=== PATIENT | male | born 1990 | race Caucasian/White ===

== ENCOUNTER 2020-06-04 15:34 | Outpatient (CLI) | payer OTHER, SELFPAY ==
--- NOTE | ~2020-06-04 | XR_ITS ---
EXAMINATION: XR chest 2V DATE: 06/04/2020 15:54 INDICATION: Dyspnea. TECHNIQUE: Frontal and lateral views of the chest were obtained. COMPARISON: Chest 2 views 06/14/2016 FINDINGS: Calcified left lung nodules are consistent with old granulomatous disease. No pleural effus ion or pneumothorax. The heart size is normal. IMPRESSION: 1. No acute cardiopulmonary disease. Reviewed, dictated and finalized at location B. OR ENGINEERING TEAM LEADER
== END 2020-06-04 15:35 | disposition home or self-care (01) ==
PROVIDERS: PCP Family Medicine; Visit Provider Nurse Practitioner Family
DX: R06.00 Dyspnea, unspecified (principal)
CPT/HCPCS: 71046

== ENCOUNTER 2020-06-09 09:34 | Outpatient (CLI) | payer OTHER, SELFPAY ==
--- NOTE | 2020-06-09 09:41 | ECG_ITS ---
Measurements Intervals [place] Rate: 95 P: 17 NV: 165 QRS: -24 QRSD: 100 T: 53 QT: 340 QTc: 428 Interpretive Statements SINUS RHYTHM EARLY PRECORDIAL R/S TRANSITION VOLTAGE CRITERIA FOR LVH BORDERLINE ECG Electronically Signed On 06-09-2020 10:17:09 ELECTRIC METER TESTER SHOP by Ortiz Villareal D.O.
== END 2020-06-09 09:35 | disposition home or self-care (01) ==
LOC: ANHCARD 09:35
PROVIDERS: PCP Family Medicine; Visit Provider Nurse Practitioner Family
DX: R06.00 Dyspnea, unspecified (principal)
CPT/HCPCS: 93005

== ENCOUNTER 2020-06-12 13:44 | Outpatient (CLI) | payer OTHER, SELFPAY ==
--- NOTE | ~2020-06-12 | CT_ITS ---
EXAMINATION: CTA chest PE protocol DATE: 06/12/2020 15:06 INDICATION: Dyspnea TECHNIQUE: Computed tomography (CT) pulmonary angiogram of the chest was performed with 100 mL Omnipa que-350 intravenous contrast. Additional 3D reconstructions utilizing coronal maximum intensity proje ction (MIP) were performed. Automated exposure control and iterative reconstruction technique were em ployed. The dose-length product was 1060.50 mGy-cm. COMPARISON: None FINDINGS: Good contrast opacification of the pulmonary arteries. There is moderate streak artifact from dense c ontrast in the superior vena cava and right atrium accentuated by body habitus. Mild scattered respir atory motion artifact. Overall this mildly decreases sensitivity in the smaller subsegmental pulmonar y arteries. No pulmonary embolism. Calcified nodules in the left upper lobe and lingula consistent wi th old granulomatous disease. Small lung volumes. No pneumonia, pulmonary edema, pleural effusion or pneumothorax. Heart size is normal. No pericardial effusion. Thoracic aorta is normal in caliber with no dissection. Diffuse hepatic steatosis. Mild thoracic spondylosis. IMPRESSION: 1. No pulmonary embolism or other acute cardiopulmonary disease. 2. Diffuse hepatic steatosis. Reviewed, dictated and finalized at location B. ICRAFT OR HOBBY SHOP MANAGER
== END 2020-06-12 13:45 | disposition home or self-care (01) ==
PROVIDERS: PCP Family Medicine; Visit Provider Nurse Practitioner Family
DX: R06.00 Dyspnea, unspecified (principal); R00.0 Tachycardia, unspecified; K76.0 Fatty (change of) liver, not elsewhere classified
CPT/HCPCS: 71275; Q9967

== ENCOUNTER 2021-04-16 14:59 | Outpatient (CLI) | payer OTHER, SELFPAY ==
--- NOTE | ~2021-04-16 | XR_ITS ---
EXAMINATION: XR hand RT min 3V DATE: 04/16/2021 15:23 INDICATION: Right hand pain at the fifth metacarpal. Fall. TECHNIQUE: 3 views of right hand were obtained. COMPARISON: None. FINDINGS: Bone alignment is normal. No fracture. There is mild osteoarthritis of first and second met acarpophalangeal joints characterized by tiny osteophytes. IMPRESSION: 1. No fracture. Reviewed, dictated and finalized at location A. OLL SECRETARY IMPRESSION: 1. No fracture.
== END 2021-04-16 15:00 | disposition home or self-care (01) ==
LOC: ANHIMG 15:04
PROVIDERS: PCP Family Medicine; Visit Provider Nurse Practitioner Family
DX: M79.641 Pain in right hand (principal)
CPT/HCPCS: 73130

== ENCOUNTER 2021-10-26 16:37 | Outpatient (CLI) | payer OTHER, SELFPAY ==
--- NOTE | ~2021-10-26 | XR_ITS ---
EXAM: XR sacrum coccyx min 2V DATE: 10/26/2021 16:58 HISTORY: M53.3 - Sacrococcygeal disorders, not elsewhere classified . Midline and right-sided sacral pain when standing for long periods. COMPARISON: None available. FINDINGS: Normal mineralization. Posterior displacement of the distal sacral elements. No fracture. No lytic or blastic lesion. Joint spaces are maintained. No erosion or periosteal change. Soft tissue s within normal limits. Incidental note of likely 4 mm retrolisthesis of L5 on S1 with disc space meredith rowing. IMPRESSION: Posteriorly displaced distal coccygeal elements, may be normal for this patient or relate d to old injury, correlate with tenderness or pain with palpation/mobilization. Incidental note of de generative disc change and a grade 1 retrolisthesis at L5-S1 which could also be a source of pain. Reviewed, dictated and finalized at [facility]. IMPRESSION: Posteriorly displaced distal coccygeal elements, may be normal for this patient or related to old injury, correlate with tenderness or pain with p alpation/mobilization. Incidental note of degenerative disc change and a grade 1 retrolisthesis at L5-S1 which could also be a source of pain.
== END 2021-10-26 16:38 | disposition home or self-care (01) ==
PROVIDERS: PCP Family Medicine; Visit Provider Physician Assistant Medical
DX: M53.3 Sacrococcygeal disorders, not elsewhere classified (principal)
CPT/HCPCS: 72220

== ENCOUNTER 2021-11-09 12:15 | Outpatient (CLI) | payer OTHER, SELFPAY ==
--- NOTE | ~2021-11-09 | MR_ITS ---
EXAMINATION: MR lumbar spine wo con, MR sacrum wo con DATE: 11/09/2021 13:36 INDICATION: Low back and tailbone pain. Grade 1 retrolisthesis. TECHNIQUE: 1. Magnetic resonance imaging (MRI) of the lumbar spine was performed without intravenous contrast. S equences included sagittal T2-weighted FSE, sagittal T2-weighted FS FSE, sagittal T1-weighted FSE, an d axial T2-weighted FSE. 2. MRI of the sacrum and coccyx was obtained without intravenous contrast. Sequences included sagitta l PD-weighted FS FSE, oblique axial and oblique coronal T1-weighted FSE and T2-weighted FS FSE and ob lique coronal T2-weighted FSE. COMPARISON: None FINDINGS: Lumbar spine: 6 mm retrolisthesis L5 on the left and lumbarized S1 segment. Mild anterior wedging at L1 with 10% an terior vertebral body height loss at L1 which may be physiologic. Many vertebral body heights are nor mal. Normal bone marrow signal throughout. Disc desiccation and mild disc height loss at L5-S1. There is an annular fissure with central disc extrusion at L5-S1 with disc material extending up to 4 mm c audal to the level of the superior endplate of S1. The conus medullaris terminates at L1-L2. There is normal signal in the caudal spinal cord. Paravertebral soft tissues are unremarkable. The following disc levels are specifically discussed: T12-L1: The disc does not extend beyond the endplate margin. There is mild bilateral facet joint oste oarthritis. There is mild bilateral neural foraminal stenosis. There is no central canal stenosis. L1-L2: The disc does not extend beyond the endplate margin. There is mild to moderate bilateral facet joint osteoarthritis. There is no neural foraminal stenosis. There is no central canal stenosis. L2-L3: Minimal bilateral foraminal zone disc protrusions. There is mild bilateral facet joint osteoar thritis. There is mild bilateral neural foraminal stenosis. There is no central canal stenosis. L3-L4: The disc does not extend beyond the endplate margin. There is mild bilateral facet joint osteo arthritis. There is mild bilateral neural foraminal stenosis. There is no central canal stenosis. L4-L5: The disc does not extend beyond the endplate margin. There is mild left and mild to moderate r ight facet joint osteoarthritis. There is mild bilateral neural foraminal stenosis. There is no centr al canal stenosis. L5-S1: Moderate-sized central disc extrusion which is noted extends 4 mm caudal to the level of S1, 1 1 mm posterior to the posterior wall of S1 and extends approximately 2 cm left to right. There is mil d bilateral facet joint osteoarthritis. There is moderate bilateral neural foraminal stenosis. There is mild central canal stenosis along with mild narrowing of the left and right lateral recesses. Sacrum and coccyx: Again seen is mild posterior angulation at the sacrococcygeal junction and mild angulation of the mor e caudal coccygeal segments. . There is mild edema at the sacrococcygeal and intercoccygeal articulat ions and minimal marrow edema along the articulating endplates. No fracture or evident loss of T1 fat signal to suggest osteomyelitis or other pathologic marrow replacing process. There is a prominent d raining vein along the ventral surface of the coccyx. This constellation of findings can be seen in t he setting of coccygeal instability with coccydynia. Bone marrow signal is otherwise normal throughou t. There is asymmetric small left sacroiliac joint effusion with mild subarticular edema along the in ferior aspect of the joint space suggesting a unilateral mild sacroiliitis. No erosions identified. IMPRESSION: 1. 4 mm retrolisthesis L5 on S1 with treated annular fissure and moderate sized central disc extrusio n as detailed above. Otherwise minimal lumbar spondylosis. 2. Mild endplate edema with increased fluid signal at the sacrococcygeal and intercoccygeal articulat ions wit
== END 2021-11-09 12:16 | disposition home or self-care (01) ==
PROVIDERS: PCP Family Medicine; Visit Provider Physician Assistant Medical
DX: M85.08 Fibrous dysplasia (monostotic), other site (principal); M43.10 Spondylolisthesis, site unspecified; M53.3 Sacrococcygeal disorders, not elsewhere classified; M47.816 Spondylosis without myelopathy or radiculopathy, lumbar region; M79.89 Other specified soft tissue disorders; M46.1 Sacroiliitis, not elsewhere classified
CPT/HCPCS: 72148; 72195

== ENCOUNTER 2022-02-11 11:00 | Outpatient (RCR) | payer OTHER, SELFPAY ==
--- NOTE | 2021-12-22 14:00 | PTOPEVAL ---
PHYSICAL THERAPY INITIAL EVALUATION. Thank you for referring Niall Acosta to [facility].? The patient is scheduled to be seen for therapy? 2x/week for 4 weeks. Please review, sign, date and return this plan of care MARELY. I agree with and certify that the following plan of care is medically necessary. Referring Physician Date Attending Provider: Connor Mercedes, MD *PT Outpatient Evaluation Start: 12/22/21 Evaluation Information Diagnosis lumbosacral radiculopathy Subjective Information Pt states he has excruciating Query Text:As Reported By Patient/ pain in his low back, budging Family and herniated disk, and a dislocated tail bone. He states both his back and coccyx pain both occurred without a mechanism of injury. He states he has a hard time sitting for any amount of time . pt states he has recently started a diet and is down 17 lbs. He states his pain states a couple of months ago and was gradual. Pt has had his R leg go numb before, but only once. Pt states he can sit for no longer than 30 mins prior to the pain starting. He states he currently does not stand for more than 5-10 mins at a time. Pt states he feels like his muscles are so tight it gets hard to breath. 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 Pain Assessment Lower Back Reported Pain Level 4 Pain Description Burning,Sharp,Shooting Pain Frequency Acute,Intermittent Lowest Pain Intensity 0 Greatest Pain Intensity 7 Lumbar ROM Lumbar Flexion Active Mid Valerio Lumbar Extension (0-40) 10 Lateral Flexion able to reach lateral knee Query Text:Active Hands to: joint line on R, 2 in above on L Lateral Rotation Right (0-45) 45 Lateral Rotation Left (0-45) 45 Lumbar Comments lumbar flexion 7 cm of change lumbar extension 2 cm of change increase pain with lumbar extension Lower Extremity Range of Motion General Lower Extremity Range of Motion WFL/Left,WFL/Right Lower Extremity Muscle Strength Testing General Lower Extremity Strength WFL/Left,WFL/Right
--- NOTE | 2022-01-05 09:45 | PCPTNOTE ---
Patient called & cancelled scheduled appointment this date due to being unable to make it this morning. Will continue with POC.
--- NOTE | 2022-01-19 08:45 | PTOPPROG ---
Evaluation Information Assessment Status Progress Diagnosis back pain Subjective Information Pt states his back is a little sore today, he is not sure why today. He states overall he does not think therapy is helping much. He does states some stretches feel really good though. He reports poor compliance with his HEP, with the last 2 days being the first day he did his exercises at home. He reports having a follow up doctors appointment at home. Pt states he can sit in any chair for about an hour prior to needing to stand. He states he can stand for not very long at all before it starts to pull on his shoulders. He reports increased pain with driving. Pt reports 20% improvement in overall symptoms. Assessment PT Clinical Summary Niall presents to therapy today for his progress report following 7 visits of therapy to treat his lower and upper back pain. He reports minimal improvements with therapy thus far but also reports poor compliance. After further education on benefits pt reports intending to be much more complaint. He has improved his lumbar flexion ROM as well as his L hip strength. He improved his gait speed during the 2 min walk assessment. He continues to have high pain rating, decreased ROM, and decreased functional mobility. Continuation of skilled therapy services are indicated to address the remaining deficits, to manage pain, and to progress to unlimited functional mobility. Plan of Care Interventions Electrical Stimulation,Hot Pack/Cold Pack,Manual Therapy,Neuro Re-education,Patient/Caregiver Educati,Therapeutic Activities,Therapeutic Exercise PT Services Indicated Yes Treatment Frequency and 2x/wk for 4 wks or until goals are met Duration These treatments will address the objective and functional deficits as defined above. The patient will be advanced safely and appropriately in order for the patient to progress towards his/her prior level of function. Additional exercises will be introduced and as well as a comprehensive home exercise program upon discharge, if needed, ?to ensure carryover of functional gains achieved in the clinic. This treatment plan has been reviewed and agreement upon by the patient.
--- NOTE | 2022-02-04 11:01 | PCPTNOTE ---
Patient called & cancelled scheduled appointment this date due to being sick.
--- NOTE | 2022-02-16 08:47 | PTOPDC ---
Assessment and note entered by Emily Chandler, PT, DPT Evaluation Information Assessment Status Discharge - Pt Not Present Diagnosis back pain Subjective Information Pt did not show for his scheduled re-evaluation this date. Called and spoke with patient to follow up. He states at worst his pain is a 4/10, he has more frequent bouts of no pain, and usually does not have pain at least until noon each day. He states he can sit for greater than 2 hours prior to his pain increasing. Assessment PT Clinical Summary Niall has completed a total of 14 therapy visits from 12/22/21 to 02/11/22. He will be discharged from skilled therapy services at this time. He was told if he would like to continue therapy at a later time, he will need a new order. Plan of Care Treatment Frequency and to be discharged Duration
== END 2022-02-16 11:33 | disposition home or self-care (01) ==
LOC: ANHPT 11:00
PROVIDERS: PCP Family Medicine; Visit Provider Neurological Surgery
DX: M51.17 Intervertebral disc disorders with radiculopathy, lumbosacral region (principal)
CPT/HCPCS: 97110; 97112; 97140; 97161; 97530; 99199

== ENCOUNTER 2023-06-21 09:40 | Outpatient (CLI) | payer OTHER, SELFPAY ==
--- NOTE | ~2023-06-21 | XR_ITS ---
EXAMINATION: XR chest 2V DATE: 06/21/2023 09:55 INDICATION: Subacute cough. Left lung pain. TECHNIQUE: Frontal and lateral views of the chest were obtained. COMPARISON: Chest 2 views 06/04/2020, chest CT 06/12/20 FINDINGS: A calcified left lung nodule is consistent with old granulomatous disease. No pleural effus ion or pneumothorax. The heart size is normal. IMPRESSION: 1. No acute cardiopulmonary disease. Reviewed, dictated and finalized at location A. AL SCIENCES RESEARCH SCIENTIST
== END 2023-06-21 09:41 | disposition home or self-care (01) ==
PROVIDERS: PCP Family Medicine; Visit Provider Family Medicine
DX: R05.2 Subacute cough (principal)
CPT/HCPCS: 71046

== ENCOUNTER 2023-07-28 09:22 | Outpatient (CLI) | payer OTHER, SELFPAY ==
--- NOTE | ~2023-07-28 | US_ITS ---
Limited Abdominal Sonogram: Real-time sonographic imaging of the right upper quadrant was performed. Clinical History: Right upper quadrant pain Findings: The liver appears echogenic, with no evidence of mass lesion or bile duct dilatation. Main portal vein demonstrates normal direction of flow. The gallbladder is well distended, and appears no rmal with no evidence of gallstone or wall thickening. The common bile duct measures 4 mm. The visua lized pancreas, aorta, and IVC are unremarkable. Impression: Diffuse fatty infiltration of the liver. Reviewed, dictated and finalized at location M. Impression: Diffuse fatty infiltration of the liver.
== END 2023-07-28 09:23 | disposition home or self-care (01) ==
PROVIDERS: PCP Family Medicine; Visit Provider Physician Assistant Medical
DX: K76.0 Fatty (change of) liver, not elsewhere classified (principal); R79.89 Other specified abnormal findings of blood chemistry
CPT/HCPCS: 76705

== ENCOUNTER 2023-11-04 10:54 | Outpatient (CLI) | payer OTHER, SELFPAY ==
--- NOTE | 2023-11-04 09:07 | ECHO_ITS ---
Patient Info Name: Niall Acosta Age: 32 years : 1990 Gender: Male Ht: 76 in Wt: 455 lbs BSA: 3.43 m2 HR: 86 bpm BP: 137 / 106 mmHg Technical Quality: Fair Exam Date: 11/04/2023 9:12 AM Exam Location: Echo Lab Patient Status: Preadmit Admit Date: 11/04/2023 Staff Ordering Physician: Rishi Posada MD Photographer Apprentice Lithographic: Ezekiel Barboza RDCS Attending Provider: Rishi Posada MD Referring Physician: Albino MCCANN; Exam Type: CA echo dop color flow w con Study Info Indications R00.0 - Tachycardia, unspecified Complete two-dimensional, color flow and Doppler transthoracic echocardiogram is performed with contrast to opacify the left ventricle and to improve the deliniation of the left ventricle endocardial borders. Contrast/Agitated Saline Contrast/Ag. Saline: Definity Amount: 2.00 ml IV Access Condition: patent with no signs of infiltration Summary 1. Definity contrast administered improved wall motion interpretation. 2. Left ventricular chamber dimension is normal. 3. Left ventricular systolic function is normal, estimated at 60-65%. 4. The left ventricular diastolic function is normal. 5. E/e' 7 is not elevated. 6. There is trace tricuspid valve regurgitation. 7. RVSP is not calculated due to an inadequate TR jet. Left Ventricle E/e' 7 is not elevated. Definity contrast administered improved wall motion interpretation. Left ventricular chamber dimension is normal. Left ventricular systolic function is normal, estimated at 60-65%. The left ventricular diastolic function is normal. Right Ventricle Right ventricular systolic function is normal and with normal TAPSE 2.1 cm. Right ventricular chamber dimension is normal. Left Atria Left atrial chamber dimension is normal. Right Atria Right atrial chamber dimension is normal. Aortic Valve The aortic valve is trileaflet. There is no aortic valve stenosis. There is no aortic valve regurgitation. Pulmonic Valve There is no pulmonic regurgitation. Mitral Valve There is no mitral valve stenosis. There is no mitral valve regurgitation. Tricuspid Valve There is trace tricuspid valve regurgitation. RVSP is not calculated due to an inadequate TR jet. Pericardium/Pleural There is no pericardial effusion. Inferior Vena Cava Normal inferior vena cava with >50% collapse upon inspiration consistent with normal right atrial pressure, 5 mmHg. Aorta The aortic root size at the sinus of Valsalva is normal. Left Ventricular Outflow Tract Name Value Normal LVOT 2D LVOT Diameter 2.28 cm LVOT Doppler LVOT Peak Gradient 6 mmHg LVOT Mean Gradient 3 mmHg LVOT VTI 18.28 cm LVOT VTI/AV VTI Ratio 0.80 LVOT Stroke Volume 74.52 ml LVOT CO 6.27 l/min LVOT CI 1.82 L/min/m2 Pulmonic Valve Name Value Normal RVOT Do
[2023-11-04] MEDS: PERFLUTREN LIPID MICROSPHERES 1.5 ML VIAL DILUTED TO 10 ML TOTAL VOLUME IV PUSH (09:45)
--- NOTE | 2023-11-04 10:29 | IVDEFINITY ---
Prior to administration of IV Definity the patient was educated on the risks and benefits of the imaging enhancing agent including potential adverse side effects. The patient verbalized understanding. Allergies were verified. No exclusion criteria were identified and at least one of the following inclusion criteria were met: 1) physician request, 2) patient technically difficult to image (per the [place] [employer] Echocardi[employer] guidelines of two or more segments not discernable within the apical view), or 3) questionable left ventricular function. ?
--- NOTE | 2023-11-08 12:44 | WPDHOLTEREM ---
Holter/Event Monitor Holter/Event Monitor Date of procedure: 11/04/23 Holter/Event Procedure: 48 Hr Holter Monitor Indications: Tachycardia Conclusion: 1. 48 hour holter monitor on 11/04/23. 2. Underlying rhythm is sinus rhythm. HR range 39-164 bpm; average HR 90 bpm. HR at 39 bpm at 06:45. HR at 164 bpm at 19:33. 3. There are 31 premature supraventricular complexes, 4 supraventricular couplets, and 3 supraventricular bigeminy. No supraventricular tachycardia. 4. There are 579 premature ventricular complexes. No ventricular tachycardia. 5. No sinoatrial or atrioventricular blocks. The longest pause is 2.6 seconds at 08:19. 6. Patient reports symptoms of fast heart beat, shortness of breath, chest pain which demonstrate sinus rhythm, HR range 93-98 bpm.
== END 2023-11-04 10:55 ==
PROVIDERS: PCP Family Medicine; Visit Provider Family Medicine
DX: R00.0 Tachycardia, unspecified (principal)
CPT/HCPCS: 93225; 93226; C8929; Q9957

== ENCOUNTER 2024-08-03 08:22 | Outpatient (CLI) | payer OTHER, SELFPAY ==
--- OUTSIDE RECORDS SUMMARY | 2024-08-03 08:44 | XMS_ITS | Encounter Summary ---
Author Organization [facility] Address [address] [place] [address] Care Team Providers Care Mailroom Coordinator Name Role Phone Jose Armando Gonsalves NP Primary Care Provid er Encounter Details Date Type Department Care Team (Late st Contact Info) Description 08/09/2019 Digital Self COVID-1 9 Screening [facility] ABSTRACTION Provider, Abstract NO ADDRESS ON FILE Social History Tobacco Use Types Packs/Day Years Used Date Smoking Tobacco: Never Smokeless Tobacco: Never Alcohol Use Standard Drinks/Week Comments Yes 0 (1 standard drink = 0.6 oz pur e alcohol) occ Sex and Gender Information Value Date Recorded Sex Assigned at Not on file Legal Sex Male 1:07 PM CDT Gender Identity Not on file Sexual Orientation Not on file documented as of this encounter Plan of Treatment Not on file documented as of this encounter Visit Diagnoses Not on filedocumented in this encounter Care Teams Mailroom Coordinator Relationship Specialty Start Date End Date Jose Armando Gonsalves NP [address] [place] [id number] PCP - General Nurse Practitioner Family 06/26/20 documented as of this encounter
--- OUTSIDE RECORDS SUMMARY | 2024-08-03 08:44 | XMS_ITS | Clinical Summary ---
Author Organization [facility] Address [address] [place] [address] Phone Care Team Providers Care Buoy Tender Name Role Phone Jose Armando Gonsalves NP Primary Care Provid er Allergies No known active allergies Medications cholecalciferol 1,250 mcg (50,000 unit) Capsule Take 1 Capsule by mouth every 7 days. 06/06/2020 Active Active Problems Patient Care Coordination No te Formatting of this note migh t be different from the original. Wood Machinist - Froilan Elaine MD. [facility] Problem Noted Date Diagnosed Date Heart palpitations 07/25/2020 Shortness of breath 07/25/2020 Elevated BP without diagnosis of hypertension Morbid obesity with BMI of 50.0-59.9, adult 09/13 Family History Medical History Relation Name Comments Arrhythmia Brother Fainting Brother High Cholesterol Brother Thyroid Disease Brother Diabetes Father Hypertension Father Stroke Father Heart Surgery Maternal Grandfather High Cholesterol Maternal Grandfather Arrhythmia Mother Diabetes Mother Relation Name Status Comments Brother Father Alive Maternal Grandfather Mother Alive Social History Tobacco Use Types Packs/Day Years Used Date Smoking Tobacco: Never Smokeless Tobacco: Never Alcohol Use Standard Drinks/Week Comments Yes 0 (1 standard drink = 0.6 oz pur e alcohol) occ Sex and Gender Information Value Date Recorded Sex Assigned at Not on file Legal Sex Male 1:07 PM CDT Gender Identity Not on file Sexual Orientation Not on file Last Filed Vital Signs Vital Sign Reading Time Taken Comments Blood Pressure 140/70 07/25/2020 11:04 AM 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 Pulse 94 07/25/2020 11:04 AM 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 Temperature 35.6 C (96 F) 07/17/2020 3:25 PM 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 Respiratory Rate - - Oxygen Saturation 97% 07/17/2020 3:25 PM 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 Inhaled Oxygen Concentration - - Weight 193.4 kg (426 lb 6.4 oz) 07/17/2020 3:25 PM 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 Height 190.5 cm (6' 3 ) 07/17/2020 3:25 PM 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 Body Mass Index 53.3 07/17/2020 3:25 PM 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
--- OUTSIDE RECORDS SUMMARY | 2024-08-03 08:44 | XMS_ITS | Clinical Summary ---
Author Organization [facility] [employer] Address [address] [place] [address] Care Team Providers Care Tunneller Name Role Phone Rishi Posada MD Primary Care Provider [phone] Source Comments [employer],non-owned Affiliates and Associated Physician Practices is amultiple site organization consisting of ambulatory clinics and hospital sitesin [place], [place], [place] and [place]. This disclosure is being madepursuant to the Care Everywhere program and may not contain all information available regarding this patient. Last updated 18.[employer] Allergies No known active allergies Medications * Be aware that medications may not be up to date on this document. Alwaysverify current medications with the patient. Medication Sig Dispensed Refills Start Date End Date Status busPIRone (BUSPAR) 15 MG tablet 08/28/2015 Active escitalopram (LEXAPRO) 20 MG tablet Take 20 mg by mouth once daily Active METFORMIN HCL PO Take 500 mg by mouth 2 times daily Active naproxen (NAPROSYN) 500 MG tablet Take 1 tablet by mouth 2 times daily 30 tablet 03/12/2018 Active Additional Information Patient not taking.Reported on 10/24/2018 fluticasone propionate (FLONASE) 50 MCG/ACT nasal spray [place] 2 sprays into each nostril once daily 1 bottles 10/24/2018 Active Additional Information Patient not taking.Reported on 02/07/2019 Social History Tobacco Use Types Packs/Day Years Used Date Smoking Tobacco: Never Smokeless Tobacco: Never Sex and Gender Information Value Date Recorded Sex Assigned at Not on file Gender Identity Male 10/24/2018 2:09 PM CDT Sexual Orientation Not on file Last Filed Vital Signs Vital Sign Reading Time Taken Comments Blood Pressure 142/74 02/07/2019 5:34 PM CDT Pulse 118 02/07/2019 5:34 PM CDT Temperature 36.8 C (98.3 F) 02/07/2019 5:34 PM CDT Respiratory Rate 18 10/24/2018 2:13 PM CDT Oxygen Saturation 99% 02/07/2019 5:34 PM CDT Inhaled Oxygen Concentration - - Weight 194.1 kg (428 lb) 02/07/2019 5:34 PM CDT Height 190.5 cm (6' 3 ) 02/07/2019 5:34 PM CDT Body Mass Index 53.5 02/07/2019 5:34 PM CDT Plan of Treatment Health Maintenance Due Date Last Done Comments HIV SCREENING 2005 HEPATITIS C SCREENING 12/08/2008 DTAP/TDAP/TD VACCINES (1 - Tdap) 2009 HEPATITIS B VACCINE (1 of 3 - 19+ 3-dose series) 2009 COVID-19 VACCINE (1 - 2023-2 5 season) 2024 INFLUENZA VACCINE (#1) 2024 DEPRESSION SCREENING 05/16/2024 ZOSTER VACCINE (1 of 2) 2040 HIB VACCINE Aged Out No longer eligi ble based on patient's age to complete this topic HPV VACCINE Aged Out No longer eligi ble based on patient's age to complete this topic MENINGOCOCCAL (Group B) VACC INE SHARED DECISION-MAKING Aged Out No longer eligibl e based on patient's age to complete this topic MENINGOCOCCAL GROUPS A/C/Y/W VACCINE Aged Out No longer eligible b ased on patient's age to complete this topic PNEUMOCOCCAL VACCINE Aged Out No long er eligible based on patient's age to complete this topic Care Teams Tunneller Relationship Specialty Start Date End Date Rishi Posada MD [address] [place] [address] PCP - General Family Medicine 04/13/17
[2024-09-03 07:54] VITALS: BMI 50.6
--- NOTE | 2024-09-03 07:54 | WPDSLEEPSTUD ---
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 The patient rarely awakens from sleep short of breath. He occasionally awakens at night with heartburn, belching or cough. He frequently snores and is occasionally loud enough that others complain. He denies having trouble sleeping when he has a cold. He rarely wakes up gasping for air throughout the night. He rarely has breathing problems at night observed by himself or others. He denies sweating excessively at night. He rarely has heart palpitations or irregular heartbeats during the night. He occasionally falls asleep during the day but rarely while driving. He denies sleep paralysis, cataplexy and hypnagogic/ hypnopompic hallucinations. He occasionally has trouble at school or work due to sleepiness. He frequently feels afraid of going to sleep. He frequently has nightmares. He frequently remembers his dreams. He frequently has thoughts racing through his mind. He occasionally feels sad or depressed. He frequently has anxiety. He frequently has muscular tension. He occasionally notices parts of his body jerk. He occasionally kicks during the night. He occasionally has crawling and aching feelings in his legs but denies having leg pain during the night he denies grinding his teeth during sleep and denies awakening with morning jaw pain. He is constantly bothered by pain during the day but is never awakened by pain during the night. He occasionally wakes up feeling stiff in the morning. He occasionally wakes up with sore or achy muscles. He occasionally wakes up with pain in the neck, spine and other joints. He goes to bed at midnight on weekdays and at 2:00 a.m. on the weekends. He states that it takes him a long time to fall asleep. He wakes up once throughout the night at most to use the restroom and is able to fall back asleep within 10 minutes. He wakes up between 8-8:45 a.m. on weekdays and at 2:00 p.m. or later on the weekends. He typically gets 4-5 hours of sleep per night. He will stay in bed for 20-40 minutes after waking up in the morning. He currently lives with his parents. He will consume caffeinated soda within 2 hours of bedtime. He denies engaging in physical exercise before bedtime. He will read watch television before falling asleep. He will occasionally take naps in the afternoon or the evening but they are not refreshing. He consumes 54 oz of caffeinated soda per day. He consumes 2-3 alcoholic beverages 1-2 times per week. He denies tobacco use. He uses medical marijuana for pain occasionally. PMFSH Past Medical History Medical History Candidal intertrigo Depression resistant to treatment Cough Morbid (severe) obesity due to excess calories COVID-19 Abnormal results of liver function studies Acute bronchitis due to other specified organisms Acute pharyngitis, unspecified (09/07/17) Darkening of skin Dietary counseling and surveillance (06/14/16) Elevated blood pressure reading Elevated liver enzymes Encounter for screening for diabetes mellitus Encounter for screening for lipoid disorders Herpes zoster with other ophthalmic complications Metabolic syndrome Obesity, unspecified Scrotal mass Symptoms concerning nutrition, metabolism, and development Surgical History Surgical History Hx of appendectomy Family History Family History Father Hypertension Cerebrovascular accident Diabetes mellitus COVID-19 Malignant neoplasm of prostate H/O prostatectomy Mother Asthma Depression COVID-19 Breast cancer Obesity Hypertension Grandparent Diabetes mellitus Sibling Pulmonary embolism COVID-19 Anxiety Schizophrenic disorder Bipolar 1 disorder Blood clot in vein Saddle embolism of pulmonary artery Depression Other Family history of lymphoma Family history of malignant neoplasm of male breast Social History Social History Smoking status: Never smoker Second hand tobacco smoke exposure: Yes Alcohol intake: current Substance use: current Substance use type: marijuana Other substance usage details: Gummies with CBD for back pain. Do You Feel Safe in your Home?: Yes Lack of Transportation: No Lack of Food: Never True Current Housing: I Have Housing Concerned About Future Housing: No Difficulty Paying Gas/Electric Bills: No Difficulty Paying for Meds: No Currently Unemployed: No Education: Associate Degree Difficulty w/ Childcare or Family Care: No Living arrangements: with family Additional living arrangements comments: Parents live with him. 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 Gender identity (if verbalized by the patient): Male Medications Home Medications ?Medication ?Instructions ?Recorded ?Confirmed ?Type cyclobenzaprine 10 mg tablet 10 mg PO TID PRN muscle spasm #30 07/22/23 08/28/24 Rx tabs cholecalciferol (vitamin D3) 125 125 mcg PO DAILY #90 caps 08/03/23 08/28/24 Rx mcg (5,000 unit) capsule semaglutide (weight loss) 1.7 1.7 mg (0.75 mL) subcut WEEKLY #3 06/10/24 08/28/24 Rx mg/0.75 mL subcutaneous pen mL injector ([id number]) meloxicam 15 mg tablet See Rx Instructions .Route 06/12/24 08/28/24 Rx .COMPLEX #30 tabs quetiapine 50 mg tablet 50 mg PO QHS #90 tabs 06/22/24 08/28/24 Rx diltiazem HCl 240 mg 240 mg PO DAILY #90 caps 07/30/24 08/28/24 Rx capsule,extended release 24 hr (Cartia XT) lisinopril 20 mg tablet 20 mg PO DAILY #90 tabs 08/19/24 08/28/24 Rx clotrimazole 1 % topical cream 1 applic topical Q12H 2 weeks #30 08/28/24 08/28/24 Rx grams Sleep Procedure A full night split study using the [employer] multi-channel system recorded the standard physiologic parameters including EEG, EOG, submentalis EMG, anterior tibialis EMG, EKG, body position, nasal and oral airflow using nasal pressure sensor and thermistor.? Respiratory parameters of chest and abdominal movements were recorded with Respiratory Inductance Plethysmography belts. Oxygen saturation was recorded by pulse oximetry. Video monitoring was also performed. Sleep stages, periodic limb movements, and EEG arousals were scored in 30 second epochs according to the criteria of the AASM Scoring Manual. The Apnea-Hypopnea Index was calculated using CMS guidelines for definition of hypopnea with 4% O2 desaturations while scoring respiratory events. Sleep Architecture During the diagnostic portion of the study, the total recording time was 156.3 minutes. The total sleep time was 141.0 minutes. Sleep latency was 5.8 minutes.? REM latency was 111.5 minutes. Sleep Efficiency was 90.2%. The patient had 9 awakenings for an awakening index of 3.8. Wake after sleep onset time was 9.5 minutes. The patient spent 29.5 minutes, 20.9% of total sleep time in Stage N1. The patient spent 97.0 minutes, 68.8% in Stage N2. The patient spent 7.5 minutes, 5.3% in Stage N3. The patient spent 7.0 minutes, 5.0% in Stage REM sleep. At 11:48:25 PM the patient was placed on PAP treatment and was titrated at pressures ranging from 5 cm H20 up to 15 cm H20. During the treatment portion of the study, the total recording time was 403.9 minutes.? The total sleep time was 377.0 minutes. Sleep latency was 8.5 minutes. REM latency was 81.5 minutes. Sleep Efficiency was 93.3%. Wake after Sleep Onset time was 18.5 minutes. The patient spent 50.5 minutes, 13.4% of total sleep time in Stage N1. The patient spent 244.0 minutes, 64.7% in Stage N2. The patient spent 28.5 minutes, 7.6% in Stage N3. The patient spent 54.0 minutes, 14.3% in Stage REM. Respiratory Analysis During the diagnostic portion of the study, the patient had 95 hypopneas and 19 obstructive apneas for an overall Apnea Hypopnea Index of 48.5 events per hour. The REM Apnea Hypopnea Index was 60.0. The NREM Apnea Hypopnea Index was 48.8. The patient had a Central Apnea Hypopnea Index of 0. There was no evidence of Juan-Baldwin Respirations. During the treatment portion of the study, the patient had 29 hypopneas, 17 obstructive apneas and 9 central apneas for an overall Apnea Hypopnea Index of 8.8 events per hour. The REM Apnea Hypopnea Index was 20.0. The NREM Apnea Hypopnea Index was 6.9. The patient had a Central Apnea Hypopnea Index of 1.4. There was no evidence of Juan-Baldwin Respirations. The patient was started on CPAP 5 cm H2O and titrated to CPAP 15 cm H2O. The patient was able to fall asleep starting on CPAP 5 cm H2O. The patient was able to achieve REM sleep starting on CPAP 7 cm H2O. On CPAP 15 cm H2O, the patient spent 29.5 minutes in NREM and 17.5 minutes in REM with 1 central apnea and 9 hypopneas, resulting in an AHI (4% desat) of 5.1. The patient had a sleep efficiency of 88.7% on this pressure setting. Arousals During the diagnostic portion of the study, there were a total of 124 arousals for an arousal index of 52.8.? There were 61 respiratory arousals for an index of 26.0. There were 9 periodic limb movement arousals for an index of 3.8.? There were 13 isolated limb movement arousals for an index of 5.5. There were 41 spontaneous arousals for an index of 17.4. During the treatment portion of the study, there were a total of 255 arousals for an index of 40.6.? There were 70 respiratory arousals for an index of 11.1. There were 94 periodic limb movement arousals for an index of 15.0.? There were 37 isolated limb movement arousals for an index of 5.9. There were 54 spontaneous arousals for an index of 8.6. Periodic Limb Movements During the diagnostic portion of the study, the patient had 29 isolated limb movements with an index of 12.3. The patient had 25 periodic limb movements with an index of 10.6. The patient had a total of 54 limb movements with a total limb movement index of 23.0. During the treatment portion of the study, the patient had 62 isolated limb movements with an index of 9.9. The patient had 267 periodic limb movements with an index of 42.5, which is elevated (normal < 15). The patient had a total of 329 limb movements with a total limb movement index of 52.4. Oximetry Data During the diagnostic portion of the study, the patient had an average oxygen saturation of 94.1% in wake with a minimum oxygen saturation of 88% and a maximum oxygen saturation of 97%. The patient had an average oxygen saturation of 91.9% in sleep with a minimum oxygen saturation of 80.0% and a maximum oxygen saturation of 96.0%. The patient had 197 oxygen desaturations resulting in an Oxygen Desaturation Index of 83.8. The patient spent 4.3 minutes, 2.7% of total sleep time with an oxygen saturation less than 88%. During the treatment portion of the study, the patient had an average oxygen saturation of 94.3% in wake with a minimum oxygen saturation of 88.0% and a maximum oxygen saturation of 98.0%. The patient had an average oxygen saturation of 93.6% in sleep with a minimum oxygen saturation of 85.0% and a maximum oxygen saturation of 100.0%. The patient had 130 oxygen desaturations resulting in an Oxygen Desaturation Index of 20.7. The patient spent 1.6 minutes, 0.4% of total sleep time with an oxygen saturation less than 88%. Snoring Profile Mild snoring was present intermittently in the baseline portion of the study. The snoring resolved once the patient was titrated to 13 cm H2O. Cardiac Profile The EKG lead showed normal sinus rhythm. No arrhythmias or premature beats were seen. During the diagnostic portion of the study, the average pulse rate was 85.8 bpm.? The minimum pulse rate was 67.0 bpm. The maximum pulse rate was 107.0 bpm. During the treatment portion of the study, the average pulse rate was 72.7 bpm.? The minimum pulse rate was 53.0 bpm. The maximum pulse rate was 97.0 bpm. EEG Profile No signs of seizure activity seen. Assessment and Plan Assessment and Plan (1) ALEXANDRA (obstructive sleep apnea): Code(s): G47.33 - Obstructive sleep apnea (adult) (pediatric) Status: Acute Assessment and Plan: In the baseline portion of the study, the patient had an overall AHI of 48.5 with desaturation down to 80%. This is consistent with severe sleep apnea. The patient was started on CPAP 5 cm H2O and titrated to CPAP 15 cm H2O. The patient's sleep apnea was best controlled on the final pressure setting with a high sleep efficiency. I recommend that the patient be prescribed Resmed CPAP at 15 cm H2O, size medium Resmed N30 nasal mask, CPAP filters/tubing and heated humidity. This should be used with all episodes of sleep.? Compliance should be reviewed within 31-90 days of starting therapy for usage greater than 4 hours per night greater than 70% of the nights. The patient should be asked about symptoms such as?excessive daytime sleepiness, quality of sleep, decreased nocturia, increased?mental functioning such as memory, mood, and concentration. Data The data obtained during this sleep study is adequate for interpretation. Certification This sleep study has been reviewed by a board certified sleep medicine physician.
== END 2024-08-04 07:18 | disposition home or self-care (01) ==
LOC: ANHCSM 08:23
PROVIDERS: PCP Family Medicine; Visit Provider Internal Medicine Cardiovascular Disease
DX: G47.33 Obstructive sleep apnea (adult) (pediatric) (principal)
CPT/HCPCS: 95811

== ENCOUNTER 2024-08-24 12:41 | Outpatient (CLI) | payer OTHER, SELFPAY ==
--- NOTE | ~2024-08-24 | MR_ITS ---
MRI of the lumbar spine Clinical History: Radiculopathy Technique: Axial T2-weighted images, and sagittal T1-weighted, T2-weighted, and T2 fat-sat images wer e acquired. COMPARISON: 11/09/2021 Findings: No fracture the lumbar spine seen. Stable mild grade 1 retrolisthesis of L4 over L5. No bon e marrow signal abnormality seen. At L1-L2, L2-L3, L3-L4, there is no significant disc bulge or herniation. There are moderate facet benedict int degenerative changes at these levels. No spinal canal stenosis at these levels. There is mild lef t neural foraminal narrowing at L1-L2 and L2-L3. Remaining neural foramina at these levels appear pre served.. At L4-L5, there is disc bulge with central disc protrusion and moderate facet arthropathy. There is m ild central canal stenosis. There is moderate bilateral neural foraminal narrowing. At L5-S1, there is no disc bulge or herniation. No spinal canal stenosis or definite neural foraminal narrowing. Impression: Degenerative spondylosis, as above. Bilateral neural foraminal narrowing at L4-L5. Mild left neural f oraminal narrowing at L1-L2 and L2-L3. Reviewed, dictated and finalized at location M. Impression: Degenerative spondylosis, as above. Bilateral neural foraminal narrowing at L4- L5. Mild left neural foraminal narrowing at L1-L2 and L2-L3.
--- OUTSIDE RECORDS SUMMARY | 2024-08-24 12:50 | XMS_ITS | Encounter Summary ---
Author Organization [employer] Address [address] [place] [address] Care Team Providers Care Residential Sales Consultant Name Role Phone Jose Armando Gonsalves NP [...] on filedocumented in this encounter Care Teams Residential Sales Consultant Relationship Specialty Start Date End Date Jose Armando Gonsalves NP [address] [place] [id number] PCP - General Nurse Practitioner Family 06/26/20 documented as of this encounter
--- OUTSIDE RECORDS SUMMARY | 2024-08-24 12:50 | XMS_ITS | Clinical Summary ---
Author Organization [facility] Address [address] [place] [address] Phone Care Team Providers Care Restaurant Attendant Name Role Phone Jose Armando Gonsalves NP Primary Care Provid er Allergies No known active allergies Medications cholecalciferol 1,250 mcg (50,000 unit) Capsule Take 1 Capsule by mouth every 7 days. 06/06/2020 Active Active Problems Patient Care Coordination No te Formatting of this note migh t be different from the original. Computer Hardware Designer - Froilan Elaine MD. [facility] Problem Noted Date Diagnosed Date Heart [...] Comments Blood Pressure 140/70 07/25/2020 11:04 AM DYNAMITE RECLAIMER Pulse 94 07/25/2020 11:04 AM DYNAMITE RECLAIMER Temperature 35.6 C (96 F) 07/17/2020 3:25 PM DYNAMITE RECLAIMER Respiratory Rate - - Oxygen Saturation 97% 07/17/2020 3:25 PM DYNAMITE RECLAIMER Inhaled Oxygen Concentration - - Weight 193.4 kg (426 lb 6.4 oz) 07/17/2020 3:25 PM DYNAMITE RECLAIMER Height 190.5 cm (6' 3 ) 07/17/2020 3:25 PM DYNAMITE RECLAIMER Body Mass Index 53.3 07/17/2020 3:25 PM DYNAMITE RECLAIMER Plan of Treatment Health Maintenance Due Date [...] age to complete this topic Insurance [employer] [id number] POS II Care Teams Restaurant Attendant Relationship Specialty Start Date End Date Jose Armando Gonsalves NP [address] [place] [address] PCP - General Nurse Practitioner Family 06/26/20
--- OUTSIDE RECORDS SUMMARY | 2024-08-24 12:50 | XMS_ITS | Clinical Summary ---
Author Organization [facility] Address [address] [place] [address] Care Team Providers Care Senior Financial Name Role Phone Unknown, Notinfile Primary Care Provider Unavail able Allergies No known active allergies Medications metFORMIN (GLUCOPHAGE) 500 mg tablet Take 500 mg by mouth 2 (two) times a day with meals. Active escitalopram (LEXAPRO) 20 mg tablet Take 20 mg by mouth daily. Active Surgical History Surgery Date Site/Laterality Comments APPENDECTOMY Medical History Medical History Date Comments Diabetes mellitus (HCC) Anxiety Social History Tobacco Use Types Packs/Day Years Used Date Smoking Tobacco: Never Smokeless Tobacco: Never Personal Safety Answer Date Recorded Have you ever been in or are you currently in a harmful physical or emotional relationship or is someone making you feel afraid or unsafe? Denies 04/18/2024 Sex and Gender Information Value Date Recorded Sex Assigned at Not on file Legal Sex Male 12:46 AM MOLDING SANDER Gender Identity Male 04/18/2024 10:53 AM MOLDING SANDER Sexual Orientation Not on file Obstetrics History Last Filed Vital Signs Vital Sign Reading Time Taken Comments Blood Pressure 118/98 04/18/2024 12:34 PM MOLDING SANDER Pulse 103 04/18/2024 12:34 PM MOLDING SANDER Temperature 36.9 C (98.5 F) 04/18/2024 12:34 PM MOLDING SANDER Respiratory Rate 20 04/18/2024 12:34 PM MOLDING SANDER Oxygen Saturation 99% 04/18/2024 12:34 PM MOLDING SANDER Inhaled Oxygen Concentration - - Weight 200 kg (440 lb 14.7 oz) 04/18/2024 11:25 AM MOLDING SANDER Height 190.5 cm (6' 3 ) 04/18/2024 11:25 AM MOLDING SANDER Body Mass Index 55.11 04/18/2024 11:25 AM MOLDING SANDER Plan of Treatment Health Maintenance Due Date Last Done Comments Depression Screening 1990 Hepatitis C Screening 1990 Varicella Vaccines (1 of 2 - 13+ 2-dose series) 12/14/2003 DTaP/Tdap/Td Vaccine (6 - Tdap) 11/04/2004 11/03/2004, 10/13/1995, 07/23/1992, Additional history exists Regular Well Visit/Exam 18-64 2008 Covid-19 Vaccine ( season) 2024 09/03/2021, 10/09/2020, 09/18/2020 Influenza Vaccine (#1) 2024 Hepatitis B Screening Completed 01/26/1996 , 12/01/1995, 10/13/1995 HPV Vaccines Aged Out No longer eligi ble based on patient's age to complete this topic Pneumococcal vaccine <65 Aged Out No longer eligible based on patient's age to complete this topic Insurance [facility] [employer] CMR PPO Care Teams Senior Financial Relationship Specialty Start Date End Date Unknown, Notinfile PCP - General 03/13/18
--- OUTSIDE RECORDS SUMMARY | 2024-08-24 12:50 | XMS_ITS | Clinical Summary ---
Author Organization [facility] [employer] Address [address] [place] [address] Care Team Providers Care Title Officer Name Role Phone Rishi Posada MD Primary Care Provider [phone] Source Comments [employer],non-owned Affiliates and Associated Physician Practices is amultiple site organization consisting of ambulatory clinics and hospital sitesin [place], [place], [place] and [place]. This disclosure is being madepursuant to the Care Everywhere program and may not contain all information available regarding this patient. Last updated 18.[employer] Allergies No known active allergies Medications * [...] fluticasone propionate (FLONASE) 50 MCG/ACT nasal spray [place] 2 sprays into each nostril once daily [...] VACCINE (1 - 2023-2 5 season) 2024 DEPRESSION SCREENING 05/16/2024 INFLUENZA VACCINE (Season Ended) 2025 ZOSTER VACCINE (1 of 2) 2040 HIB [...] age to complete this topic Care Teams Title Officer Relationship Specialty Start Date End Date Rishi Posada MD [address] [place] [address] PCP - General Family Medicine 04/13/17
--- OUTSIDE RECORDS SUMMARY | 2024-08-24 12:50 | XMS_ITS | Referral Summary ---
Author Organization [facility] Address [address] [place] [address] Care Team Providers Care Gold Assayer Name Role Phone Unknown, Notinfile Primary Care Provider Unavail able Allergies No known active allergies Medications metFORMIN (GLUCOPHAGE) 500 mg tablet Take 500 mg by mouth 2 (two) times a day with meals. Active escitalopram (LEXAPRO) 20 mg tablet Take 20 mg by mouth daily. Active Social History Tobacco Use Types Packs/Day Years [...] on file Legal Sex Male 12:46 AM GARBAGE TRUCK HELPER Gender Identity Male 04/18/2024 10:53 AM GARBAGE TRUCK HELPER Sexual Orientation Not on file Last Filed Vital Signs Vital Sign Reading Time Taken Comments Blood Pressure 118/98 04/18/2024 12:34 PM GARBAGE TRUCK HELPER Pulse 103 04/18/2024 12:34 PM GARBAGE TRUCK HELPER Temperature 36.9 C (98.5 F) 04/18/2024 12:34 PM GARBAGE TRUCK HELPER Respiratory Rate 20 04/18/2024 12:34 PM GARBAGE TRUCK HELPER Oxygen Saturation 99% 04/18/2024 12:34 PM GARBAGE TRUCK HELPER Inhaled Oxygen Concentration - - Weight 200 kg (440 lb 14.7 oz) 04/18/2024 11:25 AM GARBAGE TRUCK HELPER Height 190.5 cm (6' 3 ) 04/18/2024 11:25 AM GARBAGE TRUCK HELPER Body Mass Index 55.11 04/18/2024 11:25 AM GARBAGE TRUCK HELPER Plan of Treatment Not on file [facility] Care Teams Gold Assayer Relationship Specialty Start Date End Date Unknown, Notinfile PCP - General 03/13/18
== END 2024-08-24 12:42 | disposition home or self-care (01) ==
PROVIDERS: PCP Family Medicine; Visit Provider Nurse Practitioner Family
DX: M47.26 Other spondylosis with radiculopathy, lumbar region (principal); M46.1 Sacroiliitis, not elsewhere classified
CPT/HCPCS: 72148